=== PATIENT | male | born 1980 | race Caucasian/White ===

== ENCOUNTER 2023-01-03 04:35 | Emergency (ER) | payer OTHER ==
[2023-01-03] MEDS ORDERED: ALBUTEROL SO4 2.5/IPRATROPIUM 0.5 INH SOL 3 ML VIAL.NEB. NEB ONE (04:40)
[2023-01-03] MEDS ORDERED: ALBUTEROL SO4 2.5/IPRATROPIUM 0.5 INH SOL 3 ML VIAL.NEB. NEB STA (04:46)
[2023-01-03] MEDS ORDERED: IBUPROFEN 600 MG TABLET (FP) PO ONE (04:46)
[2023-01-03] MEDS ORDERED: DIPHTH,PERTUSS(ACELL),TET 0.5 ML DISP.SYRIN IM ONE ×2 (04:46→04:52)
[2023-01-03 04:51] VITALS: BP 137/95; PULSE 96; RESP 18; TEMP 98.4; BMI 30.4
== END 2023-01-03 06:41 | disposition home or self-care (01) ==
LOC: FER 04:35
PROC: 3E0F7GC Introduction of Other Therapeutic Substance into Respiratory Tract, Via Natural or Artificial Opening (ICD-10-PCS; principal; 2023-01-03)
PROC: 3E0234Z Introduction of Serum, Toxoid and Vaccine into Muscle, Percutaneous Approach (ICD-10-PCS; 2023-01-03)
DX: S66.911A Strain of unspecified muscle, fascia and tendon at wrist and hand level, right hand, initial encounter (principal); S60.511A Abrasion of right hand, initial encounter; Y35.93XA Legal intervention, means unspecified, suspect injured, initial encounter; Y92.9 Unspecified place or not applicable
CPT/HCPCS: 73110-TC-RT-FY; 90715; 99283-25

== ENCOUNTER 2024-03-18 21:06 | Emergency (ER) | payer OTHER ==
[2024-03-18 21:13] VITALS: BP 129/90; PULSE 115; RESP 16; TEMP 99.5; BMI 31.1
[2024-03-18] MEDS ORDERED: IBUPROFEN 600 MG TABLET (FP) PO ONE (21:23)
[2024-03-18] MEDS: IBUPROFEN 600 MG TABLET (FP) PO ONE (21:30)
== END 2024-03-18 21:50 | disposition home or self-care (01) ==
LOC: FER 21:06
DX: S40.022A Contusion of left upper arm, initial encounter (principal); W50.0XXA Accidental hit or strike by another person, initial encounter
CPT/HCPCS: 73090-TC-LT-FY; 99283-25